=== PATIENT | male | born 1940 | race Caucasian/White ===

== ENCOUNTER 2018-08-02 21:46 | Inpatient (IN) ==
[2018-08-03] MEDS ORDERED: LORazepam 0.5 MG Tablet PO PRN (12:08)
[2018-08-03] MEDS: Sertraline 50 MG Tablet PO SCH (13:13)
[2018-08-03] MEDS ORDERED: amLODIPine 5 MG Tablet PO ONE (14:00)
--- NOTE | 2018-08-03 15:18 | P.CON ---
History of Present Illness Service: Hospitalist Consult date: 08/03/18 Primary Care Provider: UNKNOWN Chief Complaint: Medical management History of Present Illness: Mr. Talbot is a 78 year old male with a history of hypertension, CAD who was admitted to the hospital due to adjustment disorder and depressed mood. Hospitalist service was consulted for medical management including hypertension and CAD. At the time of this interview, patient is resting in bed. Denies any chest pain, shortness of breath, fever or chills. Denies any changes in bowel habits. Patient reports he has had cardiac stent placed many years ago. He is not currently taking anything other than metoprolol aspirin 81 mg. Past medical history: Hypertension, coronary artery disease. Past surgical history: No major surgeries in the past Social history: Patient denies using tobacco, alcohol, illicit drugs Family history: No thrush. Review of Systems All other systems reviewed negative except as stated in HPI [facility] - History History Provided By: Patient - Medical History Medical History: Medical History (Last Reviewed 08/03/18 @ 15:15 by Adriel Matthew DO) Diabetes GERD (gastroesophageal reflux disease) High cholesterol Hypertension Pneumonia Prostate CA - Surgical History Surgical History: Surgical History (Last Reviewed 08/03/18 @ 15:15 by Adriel Matthew DO) Hx of heart artery stent - Tobacco History Second Hand Smoke Exposure: No Smoking Status: Never smoker - Alcohol History How Often Do You Have a Drink Containing Alcohol: Monthly or less - Substance Use History Substance History: No History of Abuse - Travel History Recent Travel in the USA Within the Last 8 Weeks: No Recent Travel Out of the Country Within the Last 8 Weeks: No - Immunization History Tetanus Immunization: Unsure Hx Influenza Vaccine This Season: Yes Medications and Allergies Active Medications: Active Medications Amlodipine Besylate (Norvasc) 5 mg PO DAILY [facility] Clonidine HCl (Catapres) 0.1 mg PO Q6H PRN PRN Reason: For systolic BP > 175 Diphenhydramine HCl (Benadryl) 25 mg PO HS PRN PRN Reason: INSOMNIA Lorazepam (Ativan) 0.5 mg PO Q12H PRN PRN Reason: ANXIETY Non-Formulary Medication (Aspirin) 81 mg PO DAILY [facility] Sertraline HCl (Zoloft) 25 mg PO DAILY [facility] Last Admin: 08/03/18 13:13 Dose: 25 mg Tamsulosin HCl (Flomax) 0.4 mg PO DAILY [facility] Ticagrelor (Brilinta) 90 mg PO BID [facility] Allergies Allergy/AdvReac Type Severity Reaction Status Date / Time iodine Allergy Severe Rash Verified 08/03/18 02:18 clopidogrel [From Plavix] Allergy Unknown unknown Verified 08/03/18 02:17 Home Medications Medication Instructions Recorded Confirmed Type aspirin 81 mg PO DAILY 08/03/18 08/03/18 History metoprolol tartrate 12.5 mg PO Q12HR 08/03/18 08/03/18 History Physical Exam Vital signs: Vital Signs 08/03/18 00:15 08/03/18 06:00 08/03/18 06:39 Temperature 97.9 F 97.8 F Pulse Rate 54 L 59 L Respiratory Rate 18 18 Blood Pressure 174/75 H 179/70 H 168/72 H Pulse Oximetry 95 98 08/03/18 14:52 Temperature Pulse Rate 53 L Respiratory Rate 16 Blood Pressure 171/69 H Pulse Oximetry 97 Intake & Output 08/02/18 08/03/18 08/03/18 18:59 06:59 18:59 Intake Total 600 / 600 Balance 600 / 600 Weight 64.5 kg Intake: Oral 600 / 600 Other: # Voids 1 Date of Last Bowel Movement 08/02/18 Weight On Admission 64.5 kg Narrative: GENERAL: This is a well-nourished, well-developed patient, in no apparent distress. SKIN: No rashes, ecchymoses or lesions. Warm and dry. HEAD: Atraumatic. Normocephalic. No temporal or scalp tenderness. EYES: Pupils equal round and reactive. No injection or drainage. ENT: Nose without bleeding, purulent drainage or septal hematoma. Airway patent. NECK: Trachea midline. No lymphadenopathy. Supple, nontender, no meningeal signs. CARDIOVASCULAR: Regular rhythm, slightly bradycardic without murmurs, gallops, or rubs. No JVD. RESPIRATORY: Clear to auscultation. Breath sounds equal bilaterally. No wheezes , rales, or rhonchi. GASTROINTESTINAL: Abdomen soft, non-tender, nondistended. No guarding. MUSCULOSKELETAL: Extremities without clubbing, cyanosis, or edema. NEUROLOGICAL: Awake and alert. Cranial nerves II through XII intact. No focal neurological deficits. Normal speech. Assessment and Plan - Plan Mr. Talbot is a 78-year-old male with a history of CAD, hypertension who was admitted to psychiatric unit due to adjustment disorder and depressed mood. Hospital service was consulted for medical management. Coronary artery disease Heart rate has been in the 50s. We will hold off using beta-mau for now. Continue aspirin 81 mg daily. Patient stopped taking Ticagrelor many years ago. Hypertension We will start patient on amlodipine 5 mg daily. Clonidine 0.1 mg every 6 hours as needed for blood pressure above 175 systolic. -Goal is to lower BP gradually over days. Diabetes mellitus Patient does not take any diabetic medications. HbA1C is ordered along with BMP. We will monitor labs. Will start medications as indicated by labs. -Blood glucose from outside hospital was below 118. Adjustment disorder and depressed mood Management per psychiatric team. Thank you for the consult. We will continue to follow this patient with you.
--- NOTE | 2018-08-03 21:31 | P.HPPSY ---
Provisional Diagnosis Admission Date: August 03, 2018 00:05 [place] I.: Adjustment disorder with depressed mood Competence Certification of Person's Competence To Provide Express and Informed Consent I have personally examined Ruddy Talbot, a person being served at [facility] on, August 03, [address]84. Express and informed consent means consent voluntarily given in writing, by a competent person, after sufficient explanation and disclosure of the subject matter involved to enable the person to make a knowing and willful decision without any element of force, fraud, deceit, duress, or other form of constraint or coercion. This person is 18 years of age or older, is not now known to be incompetent to consent to treatment with a guardian advocate, and does not have a health care surrogate or proxy currently making medical treatment decisions. I have found this person to be one of the following: [xxx] Competent to provide express and informed consent, as defined above, for voluntary admission to this facility and is competent to provide express and informed consent for treatment. He/she has the consistent capacity to make well reasoned, willful, and knowing decisions concerning his or her medical or mental health treatment. The person fully and consistently understands the purpose of the admission for examination/placement and is fully capable of personally exercising all rights assured under [place] Incompetent to provide express and informed consent to voluntary admission, and this is incompetent to provide express and informed consent to treatment. The person must be transferred to involuntary status and a petition for a guardian advocate filed with the Circuit Court. [] Refusing to provide express and informed consent to voluntary admission but is competent to provide express and informed consent for treatment. The person must be discharged or transferred to involuntary status. Form shall be completed within 24 hours of a person's arrival at the receiving facility and filed in the clinical record of each person: 1. Admitted on a voluntary basis 2. Permitted to provide express and informed consent to his/her own treatment 3. Allowed to transfer from involuntary to voluntary status 4. Prior to permitting a person to consent to his or her own treatment after having been previously found incompetent to consent to treatment. History of Present Illness Capacity: Has capacity History of Present Illness: Patient is a 78-year-old man , unemployed on [facility], , with no formal past psychiatric history, no previous psychiatric diagnosis, no previous psychiatric admissions or suicide attempts, with past history of HTN, GERD, CAD, prostate cancer was a transfer from [facility] under [facility] act due to patient reporting suicidal ideation which patient was admitted to the inpatient psychiatry unit for further evaluation and management. As per chart patient had reported feeling a burden and wanted to end it all and has been living in cars in hotels. Patient will be corrected by ED physician at [facility] stated above. Patient was found and ablated on the unit noted to be calm and cooperative. Patient states that he was failing everything seemed like things were going against him "the road seem to end". Patient states she was started considering things suicidal ideation. He mentions having started to feel depressed as her son had commented that he was "starting to lose it" according to his difficulty with memory. He mentions having driven his car from [place] to [place] stated that he did not have a place to sleep and has been sleeping in his car went to the ED stated feeling tired of everything and started thinking of suicide. He reports his current stressors are not having seen his for 2 years, tired of work feeling he has to restart his whole life. He reports no difficulty with sleep, no change in appetite, is endorsing feeling depressed for the past 2 weeks with suicide ideations he stated that he started giving when he is close to go further into a plan. Patient denies any perceptual disturbances at this time states that today he feels "better" that he feels better having talked to here in the hospital and stated that he did not want a feeling of burden to his kids and plan was to cut his wrist to walk into the [place]guyen. Follow-up, no previous psychotropic medication trials. Substance use history: Alcohol use occasional reporting couple of beers occasionally. Past medical history: HTN, GERD, CAD, HLD, DM, history of prostate cancer, Allergies: Clopidogrel, iodine Social history: , recently worked as a cloud security architect 2 weeks ago currently unemployed, on SSI, , not connected to the [facility], no access to firearms. - Inpatient Certification I certify that the inpatient services were ordered in accordance with Medicare regulations governing the order. This includes certification that hospital inpatient services are reasonable and necessary and in the case of services not specified as inpatient-only under 42 CFR 419.22(n), that they are appropriately provided as inpatient services in accordance to with the 2-midnight benchmark under 43 CFR 412.3(e) I certify that inpatient psychiatric hospital services are medically necessary. Evaluation and treatment and/or diagnostic testing are expected to improve the patient's condition. The patient needs on a daily basis, active treatment furnished directly by or requiring the supervision of inpatient psychiatric facility personnel. Estimated Total Length of Stay (Days): 5 Plans for Post Hospital Care: Not yet determined Review of Systems All other systems reviewed negative except as stated in HPI [facility] - History History Provided By: Patient, Medical Record - Medical History Medical History: Medical History (Last Reviewed 08/03/18 @ 15:15 by Adriel Matthew DO) Diabetes GERD (gastroesophageal reflux disease) High cholesterol Hypertension Pneumonia Prostate CA - Surgical History Surgical History: Surgical History (Last Reviewed 08/03/18 @ 15:15 by Adriel Matthew DO) Hx of heart artery stent - Tobacco History Second Hand Smoke Exposure: No Smoking Status: Never smoker - Alcohol History How Often Do You Have a Drink Containing Alcohol: Monthly or less - Substance Use History Substance History: No History of Abuse - Travel History Recent Travel in the [place] Within the Last 8 Weeks: No Recent Travel Out of the Country Within the Last 8 Weeks: No - Immunization History Tetanus Immunization: Unsure Hx Influenza Vaccine This Season: Yes Quality Measures - Psychiatric History Violence risk to others in the last 6 months: low Violence risk to self in the last 6 months: Elevated to recent suicidal ideations. - Substance Abuse History Drug or alcohol use in the past 12 months: See HPI - Patient Strengths Patient's strengths (minimum of 2): Verbal and communicative Medications and Allergies Active Medications: Active Medications Amlodipine Besylate (Norvasc) 5 mg PO DAILY [facility] Aspirin (Aspirin Chew) 81 mg PO DAILY [facility] Clonidine HCl (Catapres) 0.1 mg PO Q6H PRN PRN Reason: For systolic BP > 175 Diphenhydramine HCl (Benadryl) 25 mg PO HS PRN PRN Reason: INSOMNIA Lorazepam (Ativan) 0.5 mg PO Q12H PRN PRN Reason: ANXIETY Sertraline HCl (Zoloft) 25 mg PO DAILY [facility] Last Admin: 08/03/18 13:13 Dose: 25 mg Allergies Allergy/AdvReac Type Severity Reaction Status Date / Time iodine Allergy Severe Rash Verified 08/03/18 02:18 clopidogrel [From Plavix] Allergy Unknown unknown Verified 08/03/18 02:17 Home Medications Medication Instructions Recorded Confirmed Type aspirin 81 mg PO DAILY 08/03/18 08/03/18 History metoprolol tartrate 12.5 mg PO Q12HR 08/03/18 08/03/18 History Results - Labs CBC & Chem 7: 08/04/18 08:00 Exam Vital signs: Vital Signs 08/03/18 00:15 08/03/18 06:00 08/03/18 06:39 Temperature 97.9 F 97.8 F Pulse Rate 54 L 59 L Respiratory Rate 18 18 Blood Pressure 174/75 H 179/70 H 168/72 H Pulse Oximetry 95 98 08/03/18 14:52 08/03/18 17:16 Temperature 98.8 F Pulse Rate 53 L 56 L Respiratory Rate 16 16 Blood Pressure 171/69 H 125/60 Pulse Oximetry 97 96 Intake & Output 08/03/18 08/03/18 08/04/18 06:59 18:59 06:59 Intake Total 600 / 600 Balance 600 / 600 Weight 64.5 kg Intake: Oral 600 / 600 Other: # Voids 1 Date of Last Bowel Movement 08/02/18 Weight On Admission 64.5 kg - Constitutional no acute distress, cooperative Mental Status Examination Appearance: Appropriate Consciousness: Alert Orientation: Person, Place, Date/Time Motor Activity: Normal gait Speech: Unremarkable Language: Adequate Fund of Knowledge: Inadequate Attention and Concentration: Adequate Memory: Impaired Mood: Sad Affect: Sad Thought Process & Associations: Intact, Linear Thought Content: Appropriate Hallucination Type: None Delusion Type: None Suicidal Ideation: Yes (Denies today but is unreliable to contract for safety.) Suicidal Plan: No Suicidal Intention: No Homicidal Ideation: No Homicidal Plan: No Homicidal Intention: No Insight: Fair Judgment: Impulsive Assessment and Plan - Assessment (1) Adjustment disorder with depressed mood Code(s): F43.21 - Adjustment disorder with depressed mood Status: Acute - Plan Plan: Estimated LOS: [] days Patient is a 78-year-old man, , , unemployed on SSI with no formal past psychiatric history, with a recent homelessness which patient had endorsed suicidal ideations in the context of poor social support which patient was admitted to the inpatient psychiatry unit for further evaluation and stabilization. Patient endorsing depressive symptoms and concern for hopelessness and suicidal ideation at this time. We will start patient on sertraline 25 g p.o. daily for depression. Patient agrees to voluntary admission is capacity consent for treatment. We will continue to monitor mood and behavior. Discharge planning in progress. Justification for Continued Inpatient Stay: At risk of further decompensation at lower level care.
[2018-08-04] MEDS: amLODIPine 5 MG Tablet PO SCH (08:34)
[2018-08-04] MEDS: Sertraline 50 MG Tablet PO SCH (08:34)
[2018-08-04 09:20] LABS: Calcium 8.5 mg/dL (8.5-10.1); Carbon Dioxide 26.2 meq/L (21.0-32.0); Potassium 4.1 meq/L (3.5-5.1)
[2018-08-04 09:24] LABS: Chol/HDL Ratio 4.59 Ratio; HDL Cholesterol 38.3 mg/dL (40.0-60.0)
--- NOTE | 2018-08-04 13:08 | P.PNPSY ---
Subjective Remarks: Reviewed electronic medical records and discussed case with staff. Follow-up was conducted in his room with his nurse present. His nurse reports that he has been compliant with his medications and cooperative with staff. Patient states that he feels "pretty good". Reports that he is sleeping and eating well. When asked about his mood he states, "better than it had been a couple of days ago". He then goes on to relay several external stressors which he has been dealing with which he states led him to be calm depressed. Mental Status Examination Appearance: Appropriate Consciousness: Alert Orientation: Person, Place, Date/Time Motor Activity: Normal gait Speech: Unremarkable Language: Adequate Fund of Knowledge: Inadequate Attention and Concentration: Adequate Memory: Impaired Mood: Sad Affect: Sad Thought Process & Associations: Intact, Linear Thought Content: Appropriate Hallucination Type: None Delusion Type: None Suicidal Ideation: Yes (Denies today but is unreliable to contract for safety.) Suicidal Plan: No Suicidal Intention: No Homicidal Ideation: No Homicidal Plan: No Homicidal Intention: No Insight: Fair Judgment: Impulsive Assessment and Plan - Assessment (1) Adjustment disorder with depressed mood Code(s): F43.21 - Adjustment disorder with depressed mood Status: Acute - Plan Plan: Patient will be reevaluated by the attending psychiatrist. Continue with current treatment plan. Justification for Continued Inpatient Stay: Moving this patient to a less restrictive environment would likely result in decompensation.
--- NOTE | 2018-08-04 16:32 | P.PNIM ---
Subjective Interval history: Follow up hypertension, elevated random blood glucose, probable acute kidney injury Patient seen and examined while resting in bed. He states he is feeling cold and just covered himself up with another blanket. Denies chest pain, shortness of breath, palpitations, cough, fever or chills. Patient is normotensive. No acute distress noted. He is calm and cooperative. RN states he has been eating good. Patient's Cr is noted to be elevated. When asked if he has a known history of kidney disease he states not that he is aware of. Asked if patient is consuming beverages including water and he states yes. Physical Exam Vital signs: Last Vital Signs Temp 98.2 F 08/04/18 06:00 Pulse 58 L 08/04/18 06:00 Resp 18 08/04/18 06:00 BP 132/60 08/04/18 06:00 Pulse Ox 18 L 08/04/18 06:00 Intake & Output 08/02/18 08/03/18 08/04/18 08/05/18 06:59 06:59 06:59 06:59 Intake Total 1060 / 1060 Balance 1060 / 1060 Weight 64.5 kg Narrative: GENERAL: This is a well-nourished, well-developed patient, in no apparent distress. SKIN: No rashes, ecchymoses or lesions. Warm and dry. HEAD: Atraumatic. Normocephalic. No temporal or scalp tenderness. EYES: Pupils equal round and reactive. No injection or drainage. ENT: Nose without bleeding, purulent drainage or septal hematoma. Airway patent. NECK: Trachea midline. No lymphadenopathy. Supple, nontender, no meningeal signs. CARDIOVASCULAR: Regular rhythm, bradycardia without murmurs, gallops, or rubs. No JVD. RESPIRATORY: Clear to auscultation. Breath sounds equal bilaterally. No wheezes , rales, or rhonchi. GASTROINTESTINAL: Abdomen soft, non-tender, nondistended. No guarding. MUSCULOSKELETAL: Extremities without clubbing, cyanosis, or edema. NEUROLOGICAL: Awake and alert. Cranial nerves II through XII intact. No focal neurological deficits. Normal speech. Results Labs CBC & Chem 7: 08/04/18 08:00 Assessment and Plan Plan Patient is a 78 year old male with a past medical history significant for diabetes, GERD, dyslipidemia, hypertension, and prostate CA. He is currently admitted under psychiatric care for adjustment disorder with depressed mood. Hospitalist service has been consulted for medical management. Hypertension - evaluated 08/04/18, stable continue amlodipine 5 mg daily Clonidine 0.1 mg every 6 hours as needed for blood pressure above 175 systolic. -Goal is to lower BP gradually over days. Coronary artery disease - evaluated 08/04/18, stable -no chest pain heart rate has remains in the 50s. We will hold off using beta-mau for now. Continue aspirin 81 mg daily. Patient stopped taking Ticagrelor many years ago. Diabetes mellitus - evaluated 08/04/18 Patient does not take any diabetic medications. HbA1C pending. Will start medications as indicated by labs. -Blood glucose from outside hospital was below 118. Acute kidney injury vs chronic kidney disease - evaluated 08/04/18 -elevated Cr of 1.31 with GFR of 53 -pt denies known hx of chronic kidney disease -encouraged PO fluid intake -repeat BMP in am Adjustment disorder and depressed mood Management per psychiatric team. Medical team will follow. Progress Note: Quality VTE Deep Vein Thrombosis/Pulmonary Embolism Present on Admission: No
[2018-08-05 06:22] LABS: Calcium 7.8 mg/dL (8.5-10.1); Carbon Dioxide 25.8 meq/L (21.0-32.0); Potassium 4.1 meq/L (3.5-5.1)
--- NOTE | 2018-08-05 08:05 | P.PNPSY ---
Subjective Remarks: Reviewed electronic medical records and discussed case with staff. Follow-up was conducted in the day room with nurse present. Patient is very pleasant. Has alot of stressor due to divorce and recent loss of his brother. Endorses that he is homeless and living in his car. He is struggling in his car to his age and lack of resources. Patient is medication compliant. He states he finally had a good night sleep and feels alot better. Denies SI/HI. Review of Systems All other systems reviewed negative except as stated in HPI Mental Status Examination Appearance: Appropriate Consciousness: Alert Orientation: Person, Place, Date/Time Motor Activity: Normal gait Speech: Unremarkable Language: Adequate Fund of Knowledge: Inadequate Attention and Concentration: Adequate Memory: Impaired Mood: Sad Affect: Sad Thought Process & Associations: Intact, Linear Thought Content: Appropriate Hallucination Type: None Delusion Type: None Suicidal Ideation: No Suicidal Plan: No Suicidal Intention: No Homicidal Ideation: No Homicidal Plan: No Homicidal Intention: No Insight: Fair Judgment: Impulsive Assessment and Plan - Assessment (1) Adjustment disorder with depressed mood Code(s): F43.21 - Adjustment disorder with depressed mood Status: Acute - Plan Plan: Patient will be reevaluated by the attending psychiatrist. Continue with current treatment plan. Justification for Continued Inpatient Stay: Moving patient to a less restrictive environment may result in his decompensation.
[2018-08-05] MEDS: Sertraline 50 MG Tablet PO SCH (08:24)
[2018-08-05] MEDS: amLODIPine 5 MG Tablet PO SCH (08:24)
--- NOTE | 2018-08-05 09:15 | P.PNIM ---
Subjective Interval history: Follow up hypertension, elevated random blood glucose, probable acute kidney injury Patient is resting in bed. Denies shortness of breath, chest pain, dysuria, hematuria, fevers or chills. Blood pressure improved, A1c pending, Cr improved. Discussed lab findings with the patient. He states he has not been able to rest well as someone was yelling in the hallway constantly. Physical Exam Vital signs: Last Vital Signs Temp 98 F 08/05/18 04:23 Pulse 57 L 08/05/18 04:23 Resp 18 08/05/18 04:23 BP 128/59 L 08/05/18 04:23 Pulse Ox 90 L 08/04/18 18:27 Intake & Output 08/03/18 08/04/18 08/05/18 08/06/18 06:59 06:59 06:59 06:59 Intake Total 1060 / 1060 Balance 1060 / 1060 Weight 64.5 kg Narrative: GENERAL: well-nourished, well-developed patient, in no apparent distress. SKIN: No rashes, ecchymoses or lesions. Warm and dry. HEAD: Atraumatic. Normocephalic. EYES: Pupils equal round and reactive. No injection or drainage. ENT: Airway patent. NECK: Trachea midline. Supple, nontender. CARDIOVASCULAR: Regular rhythm, bradycardia without murmurs, gallops, or rubs. No JVD. RESPIRATORY: Clear to auscultation. Breath sounds equal bilaterally. No wheezes , rales, or rhonchi. GASTROINTESTINAL: Abdomen soft, non-tender, nondistended. MUSCULOSKELETAL: Extremities without clubbing, cyanosis, or edema. NEUROLOGICAL: Awake and alert. Cranial nerves II through XII intact. No focal neurological deficits. Normal speech. Results Labs CBC & Chem 7: 08/05/18 05:40 Assessment and Plan Plan Patient is a 78 year old male with a past medical history significant for diabetes, GERD, dyslipidemia, hypertension, and prostate CA. He is currently admitted under psychiatric care for adjustment disorder with depressed mood. Hospitalist service has been consulted for medical management. Hypertension - evaluated 08/05/18, normotensive and stable continue amlodipine 5 mg daily Clonidine 0.1 mg every 6 hours as needed for blood pressure above 175 systolic. -Goal is to lower BP gradually over days. Coronary artery disease - evaluated 08/05/18, stable -no chest pain heart rate has remains in the 50s. We will hold off using beta-mau for now. Continue aspirin 81 mg daily. Patient stopped taking Ticagrelor many years ago. Diabetes mellitus - evaluated 08/05/18 Patient does not take any diabetic medications. HbA1C pending. Will start medications as indicated by labs. Acute kidney injury vs chronic kidney disease - evaluated 08/05/18 -elevated Cr of 1.31 with GFR of 53, this is improved today to Cr of 1.17 and GFR 60 -pt denies known hx of chronic kidney disease -encouraged PO fluid intake -monitor Adjustment disorder and depressed mood Management per psychiatric team. Thank you for this consult. Will follow up on HgbA1c level and initiate therapy if indicate. Medical team will sign off, please reconsult if needed. Progress Note: Quality VTE Deep Vein Thrombosis/Pulmonary Embolism Present on Admission: No
[2018-08-05 09:35] LABS: Hemoglobin A1c 6.3 % (4.3-6.0)
[2018-08-06] MEDS: Sertraline 50 MG Tablet PO SCH (09:18)
[2018-08-06] MEDS: amLODIPine 5 MG Tablet PO SCH (09:18)
--- NOTE | 2018-08-06 11:07 | P.TTN ---
- Patient Problems Problems: 1. Discharge planning 2. Medication compliance 3. Knowledge deficit 4. Lack of coping skills - Progress Toward Goals Provider Present: Dr. Judie Obando Provider Input: 08/06/18: Pt is newly admitted. Chart/collateral reports that pt may need placement. sasha Barreraor, [facility] Group Spec/RT/OT/MEEHAN Present: Conrad Krishnamurthy OT Group Spec/RT/OT/MEEHAN Input: 08/06/18: pt has not been attending group, pt unable to tolerate group activities. - Discharge Plan 08/06/18: Pt is newly admitted. Chart/collateral reports that pt may need placement. sasha Barreraor, [facility]. - Documentation Teaching Recipient: Patient
[2018-08-06] MEDS ORDERED: Aluminum/Magnesium/Simethacone Susp 30 ML UDC PO PRN (16:18)
[2018-08-06] MEDS ORDERED: Acetaminophen 325 MG Tablet PO PRN (16:19)
--- NOTE | 2018-08-06 16:26 | P.PNPSY ---
Subjective Remarks: Patient initially admitted by Dr. Kurtis Brown, his H&P reviewed and agreed with. He did allow the patient sign voluntary. I have completed the initial inpatient psychiatric template orders and finish the reconciliation medication orders. Patient seen in the day room with medical student Bhavik and nurse patient calm and cooperative with me stating he is had increased depression over the past few months to the point was giving away his close he is now homeless he is also helpless and suicidal. He states he has nothing to live for right now he does have children that appears she is not close to them, he does have a second who is younger than him and bipolar and appears they have been for over 2 years. Patient did serve in the in the [employer] was associated with fairly high ranking officers and situations. He is cooperative with us he does deny any alcohol or drug use related to this. Denies any physical or sexual abuse. Or any significant mental health issues in his family. At this time I agree also with Dr. Brown patient does meet criteria for further inpatient hospitalization Review of Systems All other systems reviewed negative except as stated in HPI Mental Status Examination Appearance: Appropriate Consciousness: Alert Orientation: Person, Place, Date/Time Motor Activity: Normal gait Speech: Unremarkable Language: Adequate Fund of Knowledge: Adequate Attention and Concentration: Adequate Memory: Impaired Mood: Sad, Other (Also somewhat melancholic) Affect: Other (Decreased range and intensity) Thought Process & Associations: Intact, Linear Thought Content: Appropriate Hallucination Type: None Delusion Type: None Suicidal Ideation: No Suicidal Plan: No Suicidal Intention: No Homicidal Ideation: No Homicidal Plan: No Homicidal Intention: No Insight: Fair Judgment: Adequate Assessment and Plan - Assessment (1) Adjustment disorder with depressed mood Code(s): F43.21 - Adjustment disorder with depressed mood Status: Acute (2) Major depressive disorder, single episode, severe without psychosis Code(s): F32.2 - Major depressive disorder, single episode, severe without psychotic features Status: Acute - Plan Plan: Patient remains depressed and suicidal though without psychotic features. She medications above will continue with his Zoloft at this time. Justification for Continued Inpatient Stay: At this time patient with decompensated placed on a lower level of care Discharge Planning: Need to work with his homeless to find appropriate resources for him Request Healthcare Surrogate/Guardian Advocate?: No
--- NOTE | 2018-08-06 17:09 | P.PN ---
Subjective Interval history: Follow-up visit for hypertension and acute kidney injury. Patient is seen and examined ambulating in the heath in no acute distress. He denies any fevers, chills, nausea, vomiting, diarrhea, cough, shortness of breath or chest pain. Nursing staff does not report any acute events. Physical Exam Vital signs: Vital Signs 08/06/18 05:23 08/06/18 17:08 Temperature 98.1 F 98.1 F Pulse Rate 65 67 Respiratory Rate 18 16 Blood Pressure 152/66 H 153/65 H Pulse Oximetry 96 94 L Intake & Output 08/05/18 08/06/18 08/06/18 18:59 06:59 18:59 Intake Total 960 / 960 340 / 340 Balance 960 / 960 340 / 340 Weight 63.9 kg Intake: Oral 960 / 960 240 / 240 Oral Supplement 100 / 100 Other: # Voids 3 2 Date of Last Bowel Movement 08/05/18 # Bowel Movements 0 Narrative: GENERAL: well-nourished, well-developed patient, in no apparent distress. SKIN: Warm and dry. HEAD: Atraumatic. Normocephalic. EYES: Pupils equal round and reactive. No injection or drainage. ENT: Airway patent. NECK: Trachea midline. Supple, nontender. CARDIOVASCULAR: Regular rhythm without murmurs, gallops, or rubs. No JVD. RESPIRATORY: Clear to auscultation. Breath sounds equal bilaterally. No wheezes , rales, or rhonchi. GASTROINTESTINAL: Abdomen soft, non-tender, nondistended. MUSCULOSKELETAL: Extremities without clubbing, cyanosis, or edema. NEUROLOGICAL: Awake and alert. No cranial nerve deficit noted. No focal neurological deficits. Normal speech. Results - Labs CBC & Chem 7: 08/05/18 05:40 Assessment and Plan - Plan Patient is a 78 year old male with a past medical history significant for diabetes, GERD, dyslipidemia, hypertension, and prostate CA. He is currently admitted under psychiatric care for adjustment disorder with depressed mood. Hospitalist service has been consulted for medical management. Hypertension - evaluated 08/05/18, normotensive and stable continue amlodipine 5 mg daily Clonidine 0.1 mg every 6 hours as needed for blood pressure above 175 systolic. -BP improved Coronary artery disease - evaluated 08/05/18, stable -no chest pain Continue aspirin 81 mg daily. Patient stopped taking Ticagrelor many years ago. -Blood pressure has been stable. Diabetes mellitus - evaluated 08/05/18 Patient does not take any diabetic medications. HbA1C 6.3, patient reports she has been prediabetic for many years but with no medications. -Encouraged dietary and lifestyle modifications, hold off on metformin due to recent MARLON. Acute kidney injury vs chronic kidney disease - evaluated 08/05/18 -elevated Cr of 1.31 with GFR of 53, this is improved to Cr of 1.17 and GFR 60 -pt denies known hx of chronic kidney disease -encouraged PO fluid intake -monitor periodically or as outpatient Adjustment disorder and depressed mood Management per psychiatric team. DVT prophylaxisambulation Patient medically stable, [facility] will sign off. Please reconsult if needed.
[2018-08-06] MEDS: Metoprolol Tartrate 25 MG Tablet PO SCH (20:09)
[2018-08-07] MEDS: Metoprolol Tartrate 25 MG Tablet PO SCH ×2 (08:27→20:55)
[2018-08-07] MEDS: Sertraline 50 MG Tablet PO SCH (08:28)
[2018-08-07] MEDS: amLODIPine 5 MG Tablet PO SCH (08:28)
--- NOTE | 2018-08-07 10:07 | P.PNPSY ---
Subjective Remarks: Patient seen today with nurse abbi and medical student Bhavik. Chart reviewed. Patient compliant medication. Patient seen today laying in bed with covers to his chin saying that he is "thin blood" and gets shoulder early even when drinking cold water. He continues depressed somewhat hopeless and helpless with little hope for improvement in his lifestyle. However he is willing to allow us to work with him and the counselor to look at resources that might be available to him. He is vague about suicidality today. For now continue treatment Review of Systems All other systems reviewed negative except as stated in HPI Mental Status Examination Appearance: Appropriate Consciousness: Alert Orientation: Person, Place, Date/Time Motor Activity: Normal gait Speech: Unremarkable Language: Adequate Fund of Knowledge: Adequate Attention and Concentration: Adequate Memory: Impaired Mood: Sad, Other (Also somewhat melancholic) Affect: Other (Decreased range and intensity) Thought Process & Associations: Intact, Linear Thought Content: Appropriate Hallucination Type: None Delusion Type: None Suicidal Ideation: Yes (Vague today) Suicidal Plan: No Suicidal Intention: No Homicidal Ideation: No Homicidal Plan: No Homicidal Intention: No Insight: Fair Judgment: Adequate Assessment and Plan - Assessment (1) Adjustment disorder with depressed mood Code(s): F43.21 - Adjustment disorder with depressed mood Status: Acute (2) Major depressive disorder, single episode, severe without psychosis Code(s): F32.2 - Major depressive disorder, single episode, severe without psychotic features Status: Acute - Plan Plan: Patient remains depressed with some vague suicidal ideation today. Continues hopeless and helpless. But is willing to work with us related to placement issues Justification for Continued Inpatient Stay: At this time patient with decompensated placed in a lower level of care Discharge Planning: To be determined Request Healthcare Surrogate/Guardian Advocate?: No
[2018-08-08] MEDS: amLODIPine 5 MG Tablet PO SCH (09:23)
[2018-08-08] MEDS: Sertraline 50 MG Tablet PO SCH (09:24)
--- NOTE | 2018-08-08 12:32 | ECG ---
Date Performed: 08/08/2018 Time Performed: 09:47:27 PTAGE: 78 years EKG: SINUS BRADYCARDIA WITH FIRST DEGREE AV BLOCK NONSPECIFIC T-WAVE ABNORMALITY ABNORMAL ECG NO PREVIOUS TRACING DOCTOR: Faraz Ventura Interpretating Date/Time 08/08/2018 12:31:09
--- NOTE | 2018-08-08 12:37 | P.TTN ---
- Patient Problems Problems: 1. Discharge planning 2. Medication compliance 3. Knowledge deficit 4. Lack of coping skills - Progress Toward Goals Provider Present: Dr. Judie Obando (Patient needs to remain for further stabilization.) Provider Input: 08/06/18: Pt is newly admitted. Chart/collateral reports that pt may need placement. Holly, sashaor, [facility] Psychiatric Counselors Present: Roosevelt Arthur Jr., [facility] (Counselor will meet with the patient today to discuss a safe discharge plan.) Group Spec/RT/OT/MEEHAN Present: Conrad Krishnamurthy OT, SHEFALI Durán (Patient does not attend groups at this time.) Group Spec/RT/OT/MEEHAN Input: 08/06/18: pt has not been attending group, pt unable to tolerate group activities. - Discharge Plan 08/06/18: Pt is newly admitted. Chart/collateral reports that pt may need placement. sasha Barreraor, [facility]. - Documentation Teaching Recipient: Patient
--- NOTE | 2018-08-08 14:23 | P.PNPSY ---
Subjective Remarks: Patient seen in his room with floor staff, chart reviewed, patient compliant medication. Patient continues depressed though his affect has improved it appears she is feeling and fairly well with the more therapeutic milieu on 2600. He still has anxiety related to placement and issues related to finding appropriate placement. Today he is somewhat vague about suicidality. For now continue treatment Review of Systems All other systems reviewed negative except as stated in HPI Mental Status Examination Appearance: Appropriate Consciousness: Alert Orientation: Person, Place, Date/Time Motor Activity: Normal gait Speech: Unremarkable Language: Adequate Fund of Knowledge: Adequate Attention and Concentration: Adequate Memory: Impaired Mood: Sad Affect: Other (Rate and intensity somewhat improved) Thought Process & Associations: Intact Thought Content: Appropriate Hallucination Type: None Delusion Type: None Suicidal Ideation: Yes (Vague today) Suicidal Plan: No Suicidal Intention: No Homicidal Ideation: No Homicidal Plan: No Homicidal Intention: No Insight: Fair Judgment: Adequate Assessment and Plan - Assessment (1) Adjustment disorder with depressed mood Code(s): F43.21 - Adjustment disorder with depressed mood Status: Acute (2) Major depressive disorder, single episode, severe without psychosis Code(s): F32.2 - Major depressive disorder, single episode, severe without psychotic features Status: Acute - Plan Plan: Patient depression is somewhat improved, he is compliant medication, cooperative no behavior problems for now continue treatment Justification for Continued Inpatient Stay: At this time patient would decompensated placed in a lower level of care Discharge Planning: Need to work with patient to find appropriate placement for him Request Healthcare Surrogate/Guardian Advocate?: No
--- NOTE | 2018-08-08 17:10 | P.PN ---
Subjective Interval history: Reconsult due to bradycardia. Nurse does not report any events or complaints from patient. Patient seen and examined resting in bed in no acute distress. He denies any dizziness, lightheadedness, chest pain. He reports he has been feeling well and voices no acute concerns or complaints. Physical Exam Vital signs: Vital Signs 08/07/18 17:36 08/08/18 05:50 Temperature 97.4 F L 98.6 F Pulse Rate 52 L 62 Respiratory Rate 16 18 Blood Pressure 97/57 L 142/67 H Pulse Oximetry 100 98 Intake & Output 08/07/18 08/08/18 08/08/18 18:59 06:59 18:59 Intake Total 1800 / 1800 Balance 1800 / 1800 Intake: Oral 1800 / 1800 Other: # Voids 3 Date of Last Bowel Movement 08/07/18 08/07/18 Narrative: GENERAL: well-nourished, well-developed patient, in no apparent distress. SKIN: Warm and dry. HEAD: Atraumatic. Normocephalic. EYES: Pupils equal round and reactive. No injection or drainage. ENT: Airway patent. NECK: Trachea midline. Supple, nontender. CARDIOVASCULAR: Regular rhythm without murmurs, gallops, or rubs. No JVD. RESPIRATORY: Clear to auscultation. Breath sounds equal bilaterally. No wheezes , rales, or rhonchi. GASTROINTESTINAL: Abdomen soft, non-tender, nondistended. MUSCULOSKELETAL: Extremities without clubbing, cyanosis, or edema. NEUROLOGICAL: Awake and alert. No cranial nerve deficit noted. No focal neurological deficits. Normal speech. Results - Labs CBC & Chem 7: 08/05/18 05:40 Assessment and Plan - Plan Patient is a 78 year old male with a past medical history significant for diabetes, GERD, dyslipidemia, hypertension, and prostate CA. He is currently admitted under psychiatric care for adjustment disorder with depressed mood. Hospitalist reconsulted due to bradycardia. Asymptomatic bradycardia -EKG with sinus bradycardia, first-degree AV block and nonspecific T wave abnormality -Heart rate since admission fluctuates from 53mid 60s -Patient asymptomatic, discontinue metoprolol -Continue to monitor HR Hypertension , normotensive and stable continue amlodipine 5 mg daily Clonidine 0.1 mg every 6 hours as needed Coronary artery disease - evaluated 08/05/18, stable -no chest pain Continue aspirin 81 mg daily. Patient stopped taking Ticagrelor many years ago. -Blood pressure has been stable. Diabetes mellitus - evaluated 08/05/18 Patient does not take any diabetic medications. HbA1C 6.3, patient reports she has been prediabetic for many years but with no medications. -Encouraged dietary and lifestyle modifications, hold off on metformin due to recent MARLON. Acute kidney injury vs chronic kidney disease - evaluated 08/05/18 -elevated Cr of 1.31 with GFR of 53, this is improved to Cr of 1.17 and GFR 60 -pt denies known hx of chronic kidney disease -encouraged PO fluid intake -monitor periodically or as outpatient Adjustment disorder and depressed mood Management per psychiatric team. DVT prophylaxisambulation Discussed Condition With: Patient and RN
[2018-08-09] MEDS: Sertraline 50 MG Tablet PO SCH (08:59)
[2018-08-09] MEDS: amLODIPine 5 MG Tablet PO SCH (08:59)
--- NOTE | 2018-08-09 11:19 | P.PNADD ---
Addendum to Inpatient Note Reason for Addendum: Additional Documentation Additional information: Patient seen and examined yesterday for reconsult regarding bradycardia. Beta- mau has been discontinued and patient's heart rate has been stable. EKG previously reviewed. [facility] will sign off, please reconsult if needed.
--- NOTE | 2018-08-09 12:20 | P.PNPSY ---
Subjective Remarks: Patient is seen in the heath with nurse dani and medical student Bhavik, chart reviewed, patient continues to do well on 2600 he is social with the other patients states his sleep is improved his appetite has improved. He does denies suicidality today though he acknowledges continued depression and anxiety somewhat related to the unknown placement problems. For now we will increase Zoloft to 50 mg daily and continue to work with placement issues. Also patient states he did spend 6 years in the [place] and was honorably discharged with a counselor [facility] has any [facility] that may be able to access Review of Systems All other systems reviewed negative except as stated in HPI Mental Status Examination Appearance: Appropriate Consciousness: Alert Orientation: Person, Place, Date/Time Motor Activity: Normal gait Speech: Unremarkable Language: Adequate Fund of Knowledge: Adequate Attention and Concentration: Adequate Memory: Impaired Mood: Sad Affect: Other (Rate and intensity somewhat improved) Thought Process & Associations: Intact Thought Content: Appropriate Hallucination Type: None Delusion Type: None Suicidal Ideation: Yes (Vague today) Suicidal Plan: No Suicidal Intention: No Homicidal Ideation: No Homicidal Plan: No Homicidal Intention: No Insight: Fair Judgment: Adequate Assessment and Plan - Assessment (1) Adjustment disorder with depressed mood Code(s): F43.21 - Adjustment disorder with depressed mood Status: Acute (2) Major depressive disorder, single episode, severe without psychosis Code(s): F32.2 - Major depressive disorder, single episode, severe without psychotic features Status: Acute - Plan Plan: Patient remains somewhat depressed and anxious though he is fitting into the menu here well on 2600 we will have Counselor check if he has had a [facility] benefits Justification for Continued Inpatient Stay: At this time patient with decompensated placed on a lower level of care Discharge Planning: To be determined Request Healthcare Surrogate/Guardian Advocate?: No
[2018-08-10] MEDS: amLODIPine 5 MG Tablet PO SCH (09:02)
[2018-08-10] MEDS: Sertraline 50 MG Tablet PO SCH (09:02)
--- NOTE | 2018-08-10 13:54 | P.PNPSY ---
Subjective Remarks: Patient is seen in the heath with floor staff, chart reviewed, patient complaint medications. He continues to do well in the milieu he is socializing and enjoying the interpersonal contacts. He denies suicidality at this time. However the remains his significant anxiety with depression when considering his life after discharge we will continue to work diligently to find appropriate placement for this gentleman Review of Systems All other systems reviewed negative except as stated in HPI Mental Status Examination Appearance: Appropriate Consciousness: Alert Orientation: Person, Place, Date/Time Motor Activity: Normal gait Speech: Unremarkable Language: Adequate Fund of Knowledge: Adequate Attention and Concentration: Adequate Memory: Impaired Mood: Sad (Somewhat improved) Affect: Other (Rate and intensity somewhat improved) Thought Process & Associations: Intact Thought Content: Appropriate Hallucination Type: None Delusion Type: None Suicidal Ideation: Yes (Vague today) Suicidal Plan: No Suicidal Intention: No Homicidal Ideation: No Homicidal Plan: No Homicidal Intention: No Insight: Fair Judgment: Adequate Assessment and Plan - Assessment (1) Adjustment disorder with depressed mood Code(s): F43.21 - Adjustment disorder with depressed mood Status: Acute (2) Major depressive disorder, single episode, severe without psychosis Code(s): F32.2 - Major depressive disorder, single episode, severe without psychotic features Status: Acute - Plan Plan: Patient continues depressed but improving, continues to remain the underlying depression and anxiety and trepidation related to discharge plans and placement Justification for Continued Inpatient Stay: At this time patient with decompensated placed on a lower level of care Discharge Planning: To be determined Request Healthcare Surrogate/Guardian Advocate?: No
[2018-08-11] MEDS: amLODIPine 5 MG Tablet PO SCH (08:56)
[2018-08-11] MEDS: Sertraline 50 MG Tablet PO SCH (08:58)
--- NOTE | 2018-08-11 18:10 | P.PNPSY ---
Subjective Remarks: Reviewed electronic medical records and discussed case with staff. Follow-up was conducted in the hallway with PO Ayala present. His nurse reports he has been pleasant, seclusive, compliant with his medications. Patient states that he slept well and his appetite's been good. When asked about suicidal ideation he states, "I am not actively thinking about it but my mind has not changed either". He denies any side effects from medication. Mental Status Examination Appearance: Appropriate Consciousness: Alert Orientation: Person, Place, Date/Time Motor Activity: Normal gait Speech: Unremarkable Language: Adequate Fund of Knowledge: Adequate Attention and Concentration: Adequate Memory: Impaired Mood: Sad (Somewhat improved) Affect: Other (Rate and intensity somewhat improved) Thought Process & Associations: Intact Thought Content: Appropriate Hallucination Type: None Delusion Type: None Suicidal Ideation: Yes (Vague today) Suicidal Plan: No Suicidal Intention: No Homicidal Ideation: No Homicidal Plan: No Homicidal Intention: No Insight: Fair Judgment: Adequate Assessment and Plan - Assessment (1) Adjustment disorder with depressed mood Code(s): F43.21 - Adjustment disorder with depressed mood Status: Acute - Plan Plan: Patient will be reevaluated by the attending psychiatrist. Continue with current treatment plan. Justification for Continued Inpatient Stay: Moving this patient to a less restrictive environment would likely result in decompensation. Request Healthcare Surrogate/Guardian Advocate?: No
[2018-08-12] MEDS: Sertraline 50 MG Tablet PO SCH (09:11)
[2018-08-12] MEDS: amLODIPine 5 MG Tablet PO SCH (09:11)
--- NOTE | 2018-08-12 14:25 | P.PNPSY ---
Subjective Remarks: Reviewed electronic record and discussed with nursing staff. Rounded with PO Ayala. Patient remains somewhat seclusive. Sleeping and eating well. Nursing reports that patient feels like he is a burden to others and that he is somewhat hopeless. He is cooperative and pleasant. Review of Systems All other systems reviewed negative except as stated in HPI Mental Status Examination Appearance: Appropriate Consciousness: Alert Orientation: Person, Place, Date/Time Motor Activity: Normal gait Speech: Unremarkable Language: Adequate Fund of Knowledge: Adequate Attention and Concentration: Adequate Memory: Impaired Mood: Sad (Somewhat improved) Affect: Other (Rate and intensity somewhat improved) Thought Process & Associations: Intact Thought Content: Appropriate Hallucination Type: None Delusion Type: None Suicidal Ideation: Yes (Vague today) Suicidal Plan: No Suicidal Intention: No Homicidal Ideation: No Homicidal Plan: No Homicidal Intention: No Insight: Fair Judgment: Adequate Assessment and Plan - Assessment (1) Adjustment disorder with depressed mood Code(s): F43.21 - Adjustment disorder with depressed mood Status: Acute - Plan Plan: Patient will be reevaluated by the attending psychiatrist. Continue with current treatment plan. Justification for Continued Inpatient Stay: Moving patient to a less restrictive environment may result in his decompensation. Request Healthcare Surrogate/Guardian Advocate?: No
[2018-08-13] MEDS: amLODIPine 5 MG Tablet PO SCH (08:36)
[2018-08-13] MEDS: Sertraline 50 MG Tablet PO SCH (08:36)
--- NOTE | 2018-08-13 13:48 | P.PNPSY ---
Subjective Remarks: Is seen in his room with nurse Breanne, chart reviewed, patient compliant with medications. While patient is acclimating well to the milieu and the activities he continues quite depressed. He still feels there is no solution to his problem except to kill himself. He still is able to consider alternatives such as [facility] or of the health care homes but there is a futility and hopelessness still with them. For now continue treatment Review of Systems All other systems reviewed negative except as stated in HPI Mental Status Examination Appearance: Appropriate Consciousness: Alert Orientation: Person, Place, Date/Time Motor Activity: Normal gait Speech: Unremarkable Language: Adequate Fund of Knowledge: Adequate Attention and Concentration: Adequate Memory: Impaired Mood: Sad (Somewhat improved) Affect: Other (Today rate and intensity are decreased) Thought Process & Associations: Intact Thought Content: Appropriate Hallucination Type: None Delusion Type: None Suicidal Ideation: Yes (More intense today with hopelessness and and inevitability) Suicidal Plan: No Suicidal Intention: Yes (Today feels like there is no option) Homicidal Ideation: No Homicidal Plan: No Homicidal Intention: No Insight: Fair Judgment: Adequate Assessment and Plan - Assessment (1) Adjustment disorder with depressed mood Code(s): F43.21 - Adjustment disorder with depressed mood Status: Acute (2) Major depressive disorder, single episode, severe without psychosis Code(s): F32.2 - Major depressive disorder, single episode, severe without psychotic features Status: Acute - Plan Plan: Patient remains quite depressed, he does feel safe on the unit. Though he remains suicidal Justification for Continued Inpatient Stay: At this time patient with decompensated placed on a lower level of care Discharge Planning: To be determined Request Healthcare Surrogate/Guardian Advocate?: No
--- NOTE | 2018-08-13 14:33 | P.TTN ---
- Patient Problems Problems: 1. Discharge planning 2. Medication compliance 3. Knowledge deficit 4. Lack of coping skills - Progress Toward Goals Provider Present: Dr. Judie Obando (Patient needs to remain for further stabilization.) Provider Input: 08/06/18: Pt is newly admitted. Chart/collateral reports that pt may need placement. sasha Barreraor, [facility]. Psychiatric Counselors Present: Roosevelt Arthur Jr., [facility] (Counselor will meet with the patient today to discuss a safe discharge plan.), Nell Zhu, [facility] Psychiatric Therapist Input: 08/13/2018 Counselor reports patient needs placement needs being evaluated. Group Spec/RT/OT/MEEHAN Present: Conrad Krishnamurthy OT, SHEFALI Durán (Patient does not attend groups at this time.) Group Spec/RT/OT/MEEHAN Input: 08/06/18: pt has not been attending group, pt unable to tolerate group activities. - Discharge Plan 08/06/18: Pt is newly admitted. Chart/collateral reports that pt may need placement. sasha Barreraor, [facility]. - Documentation Teaching Recipient: Patient
[2018-08-14] MEDS: amLODIPine 5 MG Tablet PO SCH (08:39)
[2018-08-14] MEDS: Sertraline 50 MG Tablet PO SCH (08:39)
--- NOTE | 2018-08-14 11:07 | P.PNPSY ---
Subjective Remarks: Patient seen and examined room with nurse Breanne, chart reviewed, patient compliant medication. Patient still shows significant anxiety depression Discussing placement issues. Continues to hopelessness and helplessness with him. Though he is willing to consider possible placement in the family living situation where he can keep significant portion of his income and also continue to keep his automobile. We will continue to work with counselors to find an appropriate living situation Review of Systems All other systems reviewed negative except as stated in HPI Mental Status Examination Appearance: Appropriate Consciousness: Alert Orientation: Person, Place, Date/Time Motor Activity: Normal gait Speech: Unremarkable Language: Adequate Fund of Knowledge: Adequate Attention and Concentration: Adequate Memory: Impaired Mood: Sad (Somewhat improved) Affect: Other (Today rate and intensity are decreased) Thought Process & Associations: Intact Thought Content: Appropriate Hallucination Type: None Delusion Type: None Suicidal Ideation: Yes (Feels somewhat more positive considering [facility]) Suicidal Plan: No Suicidal Intention: Yes (Appears to be somewhat more positive when considering [facility]) Homicidal Ideation: No Homicidal Plan: No Homicidal Intention: No Insight: Fair Judgment: Adequate Assessment and Plan - Assessment (1) Adjustment disorder with depressed mood Code(s): F43.21 - Adjustment disorder with depressed mood Status: Acute (2) Major depressive disorder, single episode, severe without psychosis Code(s): F32.2 - Major depressive disorder, single episode, severe without psychotic features Status: Acute - Plan Plan: We will continue to look and investigate [facility] for placement. He is overall doing well here he is eating and sleeping well socializing with other patients some extent. Justification for Continued Inpatient Stay: At this time patient with decompensated placed on a lower level of care Discharge Planning: To be determined Request Healthcare Surrogate/Guardian Advocate?: No
[2018-08-15] MEDS: Sertraline 50 MG Tablet PO SCH (08:14)
[2018-08-15] MEDS: amLODIPine 5 MG Tablet PO SCH (08:14)
--- NOTE | 2018-08-15 13:48 | P.PNPSY ---
Subjective Remarks: Patient is seen in the day room with floor staff, chart reviewed, patient compliant medication. We continue to discuss placement options [facility] versus family group home. Patient continues to show some interest in them though he is concerned about his funds his ability to maintain himself there and what might happen to his car. I suggested he look at giving and [facility] a trial for 1 month to make a determination there. However he also states that suicide is still a viable alternative for him. He is able contract to do no harm while here in the hospital. For now continue treatment Review of Systems All other systems reviewed negative except as stated in HPI Mental Status Examination Appearance: Appropriate Consciousness: Alert Orientation: Person, Place, Date/Time Motor Activity: Normal gait Speech: Unremarkable Language: Adequate Fund of Knowledge: Adequate Attention and Concentration: Adequate Memory: Impaired Mood: Sad (Somewhat improved) Affect: Other (Today rate and intensity are decreased) Thought Process & Associations: Intact Thought Content: Appropriate Hallucination Type: None Delusion Type: None Suicidal Ideation: Yes (Feels somewhat more positive considering [facility] [place]) Suicidal Plan: No Suicidal Intention: Yes (Appears to be somewhat more positive when considering [facility]) Homicidal Ideation: No Homicidal Plan: No Homicidal Intention: No Insight: Fair Judgment: Adequate Assessment and Plan - Assessment (1) Adjustment disorder with depressed mood Code(s): F43.21 - Adjustment disorder with depressed mood Status: Acute (2) Major depressive disorder, single episode, severe without psychosis Code(s): F32.2 - Major depressive disorder, single episode, severe without psychotic features Status: Acute - Plan Plan: Patient's depression appears to lifting some month of he is still actively suicidal. The times he appears to be showing some consideration for at least attempting to make it and placement either [facility] or family living situation Justification for Continued Inpatient Stay: At this point patient with decompensated placed on a lower level of care Discharge Planning: To be determined Request Healthcare Surrogate/Guardian Advocate?: No
[2018-08-16] MEDS: amLODIPine 5 MG Tablet PO SCH (08:09)
[2018-08-16] MEDS: Sertraline 50 MG Tablet PO SCH (08:09)
--- NOTE | 2018-08-16 12:13 | P.PNPSY ---
Subjective Remarks: Patient seen and heath with floor staff, chart reviewed, patient compliant medication. It appears there is an [facility] that is willing to accept this patient to their facility. We have talked with the patient today it appears he may be willing to give a trial at that facility. It appears she will be able to keep his vehicle while there. At this time patient is vague about suicidality is able contract at this time to do no harm. If patient's behavior continues well consider discharge to the facility and 24-48 hours Review of Systems All other systems reviewed negative except as stated in HPI Mental Status Examination Appearance: Appropriate Consciousness: Alert Orientation: Person, Place, Date/Time Motor Activity: Normal gait Speech: Unremarkable Language: Adequate Fund of Knowledge: Adequate Attention and Concentration: Adequate Memory: Impaired Mood: Sad (Somewhat improved) Affect: Other (Today rate and intensity are decreased) Thought Process & Associations: Intact Thought Content: Appropriate Hallucination Type: None Delusion Type: None Suicidal Ideation: Yes (Today feels somewhat positive about possibly going to the [facility]) Suicidal Plan: No Suicidal Intention: Yes (Vague today) Homicidal Ideation: No Homicidal Plan: No Homicidal Intention: No Insight: Fair Judgment: Adequate Assessment and Plan - Assessment (1) Adjustment disorder with depressed mood Code(s): F43.21 - Adjustment disorder with depressed mood Status: Acute (2) Major depressive disorder, single episode, severe without psychosis Code(s): F32.2 - Major depressive disorder, single episode, severe without psychotic features Status: Acute - Plan Plan: Patient's mood somewhat more positive, he appears positive about the possibility of being accepted in a local [facility] for now continue treatment Justification for Continued Inpatient Stay: At this time patient would decompensate if not placed him at appropriate level of care Discharge Planning: Possible placement in a local [facility] Request Healthcare Surrogate/Guardian Advocate?: No
[2018-08-17] MEDS: amLODIPine 5 MG Tablet PO SCH (08:35)
[2018-08-17] MEDS: Sertraline 50 MG Tablet PO SCH (08:35)
--- NOTE | 2018-08-17 12:37 | P.PNPSY ---
Subjective Remarks: Patient seen in his room with RN, compliant medication, chart reviewed. Patient is showing some increased affect today is excited about potential discharge on Monday 08/20 to an [facility] today he denies suicidality is somewhat excited about the possibility of being able to be more active. Though he still has some concerns about being able to cover his expenses especially related to his vehicle. For now continue treatment no change Review of Systems All other systems reviewed negative except as stated in HPI Mental Status Examination Appearance: Appropriate Consciousness: Alert Orientation: Person, Place, Date/Time Motor Activity: Normal gait Speech: Unremarkable Language: Adequate Fund of Knowledge: Adequate Attention and Concentration: Adequate Memory: Impaired Mood: Sad (Somewhat improved) Affect: Other (Good range and intensity) Thought Process & Associations: Intact Thought Content: Appropriate Hallucination Type: None Delusion Type: None Suicidal Ideation: Yes (Today feels somewhat positive about possibly going to the [facility]) Suicidal Plan: No Suicidal Intention: Yes (Denies today) Homicidal Ideation: No Homicidal Plan: No Homicidal Intention: No Insight: Adequate Judgment: Adequate Assessment and Plan - Assessment (1) Adjustment disorder with depressed mood Code(s): F43.21 - Adjustment disorder with depressed mood Status: Acute (2) Major depressive disorder, single episode, severe without psychosis Code(s): F32.2 - Major depressive disorder, single episode, severe without psychotic features Status: Acute - Plan Plan: Patient's mood seems to be improving somewhat there is some vague suicidality but it is resolving. He seems to be showing some hope that this [facility] placement might be successful. For now continue treatment Justification for Continued Inpatient Stay: At this time patient with decompensated placed in a lower level of care Discharge Planning: Possible discharge 08/20 to [facility] Request Healthcare Surrogate/Guardian Advocate?: No
[2018-08-18] MEDS: Sertraline 50 MG Tablet PO SCH (08:49)
[2018-08-18] MEDS: amLODIPine 5 MG Tablet PO SCH (08:49)
--- NOTE | 2018-08-18 13:42 | P.PNPSY ---
Subjective Remarks: Pt seen and discussed with staff. He is cooperative with care and medications. Depression continues to improve and he denies SI/HI. He will be going to [facility] on Monday Mental Status Examination Appearance: Appropriate Consciousness: Alert Orientation: Person, Place, Date/Time Motor Activity: Normal gait Speech: Unremarkable Language: Adequate Fund of Knowledge: Adequate Attention and Concentration: Adequate Memory: Impaired Mood: Sad (decreasing) Affect: Other (Good range and intensity) Thought Process & Associations: Intact Thought Content: Appropriate Hallucination Type: None Delusion Type: None Suicidal Ideation: No Suicidal Plan: No Suicidal Intention: No Homicidal Ideation: No Homicidal Plan: No Homicidal Intention: No Insight: Adequate Judgment: Adequate Assessment and Plan - Assessment (1) Adjustment disorder with depressed mood Code(s): F43.21 - Adjustment disorder with depressed mood Status: Acute (2) Major depressive disorder, single episode, severe without psychosis Code(s): F32.2 - Major depressive disorder, single episode, severe without psychotic features Status: Acute - Plan Plan: Pt improving. Continue current tx plan and discharge planning. Justification for Continued Inpatient Stay: risk of decompensation Request Healthcare Surrogate/Guardian Advocate?: No
[2018-08-19] MEDS: Sertraline 50 MG Tablet PO SCH (08:32)
[2018-08-19] MEDS: amLODIPine 5 MG Tablet PO SCH (08:32)
--- NOTE | 2018-08-19 12:11 | P.PNPSY ---
Subjective Remarks: Reviewed electronic medical record and discussed with nursing staff. Rounded with PO Hugo. Patient is in his bed. He states he is thinking about his life and how successful he was and now he is going to an RETIREMENT. He is aware of the plan to discharge him soon and he is a little nervous about the transition. He denies any physical concerns. He is sleeping and eating. Seclusive and spends most of his time in bed. He remains slightly confused, with more remote recall than recent recall. Review of Systems All other systems reviewed negative except as stated in HPI Mental Status Examination Appearance: Appropriate Consciousness: Alert Orientation: Person, Place, Date/Time Motor Activity: Normal gait Speech: Unremarkable Language: Adequate Fund of Knowledge: Adequate Attention and Concentration: Adequate Memory: Impaired Mood: Sad (decreasing) Affect: Other (Good range and intensity) Thought Process & Associations: Intact Thought Content: Appropriate Hallucination Type: None Delusion Type: None Suicidal Ideation: No Suicidal Plan: No Suicidal Intention: No Homicidal Ideation: No Homicidal Plan: No Homicidal Intention: No Insight: Adequate Judgment: Adequate Assessment and Plan - Assessment (1) Adjustment disorder with depressed mood Code(s): F43.21 - Adjustment disorder with depressed mood Status: Acute (2) Major depressive disorder, single episode, severe without psychosis Code(s): F32.2 - Major depressive disorder, single episode, severe without psychotic features Status: Acute - Plan Plan: Pt improving. Continue current tx plan and discharge planning. Justification for Continued Inpatient Stay: Moving patient to a less restrictive environment may result in his decompensation. Request Healthcare Surrogate/Guardian Advocate?: No
[2018-08-20] MEDS: amLODIPine 5 MG Tablet PO SCH (08:59)
[2018-08-20] MEDS: Sertraline 50 MG Tablet PO SCH (08:59)
--- NOTE | 2018-08-20 11:30 | P.DSPSY ---
Psychiatry Discharge Summary Inpatient Psychiatric care?: Yes Advance Directives: No Mental Health Advance Directive: No Health Care Proxy: No - Admission Admission Date: August 03, 2018 00:05 - Admission Diagnosis (1) Major depressive disorder, single episode, severe without psychosis Code(s): F32.2 - Major depressive disorder, single episode, severe without psychotic features Brief History: Patient is a 78-year-old man , unemployed on SSI, , with no formal past psychiatric history, no previous psychiatric diagnosis, no previous psychiatric admissions or suicide attempts, with past history of HTN, GERD, CAD, prostate cancer was a transfer from [facility] under [facility] act due to patient reporting suicidal ideation which patient was admitted to the inpatient psychiatry unit for further evaluation and management. As per chart patient had reported feeling a burden and wanted to end it all and has been living in cars in hotels. Patient will be corrected by ED physician at [facility] stated above. Patient was found and ablated on the unit noted to be calm and cooperative. Patient states that he was failing everything seemed like things were going against him "the road seem to end". Patient states she was started considering things suicidal ideation. He mentions having started to feel depressed as her son had commented that he was "starting to lose it" according to his difficulty with memory. He mentions having driven his car from [place] to [place] stated that he did not have a place to sleep and has been sleeping in his car went to the ED stated feeling tired of everything and started thinking of suicide. He reports his current stressors are not having seen his for 2 years, tired of work feeling he has to restart his whole life. He reports no difficulty with sleep, no change in appetite, is endorsing feeling depressed for the past 2 weeks with suicide ideations he stated that he started giving when he is close to go further into a plan. Patient denies any perceptual disturbances at this time states that today he feels "better" that he feels better having talked to here in the hospital and stated that he did not want a feeling of burden to his kids and plan was to cut his wrist to walk into the [facility]. Follow-up, no previous psychotropic medication trials. Substance use history: Alcohol use occasional reporting couple of beers occasionally. Past medical history: HTN, GERD, CAD, HLD, DM, history of prostate cancer, Allergies: Clopidogrel, iodine Social history: , recently worked as a cyber security engineer 2 weeks ago currently unemployed, on SSI, , not [facility] to the [facility], no access to firearms. Tobacco Use In Past 30 Days: No How Often Do You Have a Drink Containing Alcohol: Monthly or less Hospital Course: Patient's hospital course was uneventful, he showed no behavioral problems. He has been compliant with his medication. He has showed some limited social interaction. However the remains of fatalism with him. There is still some vague hopelessness related to his future. Though he does show some willingness in anticipation of the discharge to his placement. He is able contract with me at this time to do no harm. Though I feel that he may be some chronic suicidal ideation, ideation with this gentleman. However also reassured him that he can return to our emergency department at any time for an assessment by her nurse Ringer's if he feels he is becoming unsafe with himself. He is willing and excited about going to the placement today. Thus patient will be discharged today to [facility] with Rx times 1 month follow-up [facility] act - Discharge Discharge Date: 08/20/18 - Discharge Diagnosis (1) Major depressive disorder, single episode, severe without psychosis Code(s): F32.2 - Major depressive disorder, single episode, severe without psychotic features Status: Acute Discharge Disposition: Assisted Living Facility - Discharge Instructions Discharge Diet: Regular Diet Activities You Can Perform: Regular- No Restrictions - Discharge Time > 30 minutes Mental Status Examination Appearance: Appropriate Consciousness: Alert Orientation: Person, Place, Date/Time Motor Activity: Normal gait Speech: Unremarkable Language: Adequate Fund of Knowledge: Adequate Attention and Concentration: Adequate Memory: Impaired Mood: Sad (decreasing) Affect: Other (Good range and intensity) Thought Process & Associations: Intact Thought Content: Appropriate Hallucination Type: None Delusion Type: None Suicidal Ideation: No Suicidal Plan: No Suicidal Intention: No Homicidal Ideation: No Homicidal Plan: No Homicidal Intention: No Insight: Adequate Judgment: Adequate Discharge/Advance Care Plan - Results Vital Signs: Last Vital Signs Temp 97.6 F 08/20/18 05:05 Pulse 68 08/20/18 05:05 Resp 16 08/20/18 05:05 BP 143/67 H 08/20/18 05:05 Pulse Ox 99 08/20/18 05:05 Lab Results: Laboratory Results Hemoglobin A1c 6.3 % (4.3-6.0) H 08/04/18 08:00 Triglycerides 134 mg/dL (42-150) 08/04/18 08:00 Cholesterol 176 mg/dL (120-200) 08/04/18 08:00 LDL Cholesterol, Calc 111 mg/dL (0-99) H 08/04/18 08:00 HDL Cholesterol 38.3 mg/dL (40.0-60.0) L 08/04/18 08:00 Summary of Procedures: None done Pending Results: None - Medications Number of antipsychotic medications at discharge: 0 - Discharge Care Plan Goals to Promote Your Health: * To prevent worsening of your condition and complications * To maintain your health at the optimal level Directions to Meet Your Goals: Take your medications as prescribed Follow your dietary instruction Follow activity as directed Keep your appointments as scheduled Take your immunizations and boosters as scheduled If your symptoms worsen call your PCP, if no PCP go to Urgent Care Center or Emergency Room For 03/04 questions related to your inpatient stay or results of tests pending at discharge, please contact Dr. Gerry Obando MD at Smoking is Dangerous to Your Health. Avoid second hand smoking
== END 2018-08-20 15:10 ==
LOC: H250 08-03 00:05 → H260 08-07 10:27
PROVIDERS: ADMIT Psychiatry & Neurology Psychiatry; ATTEND Psychiatry & Neurology Psychiatry